=== PATIENT | male | born 1960 | race Caucasian/White ===

== ENCOUNTER 2020-11-10 07:24 | Emergency (ER) | payer OTHER ==
--- NOTE | 2020-11-10 08:38 | EDM.PDOC ---
ED HPI GENERAL MEDICAL PROBLEM - General Chief Complaint: Upper Extremity Injury/Pain Stated Complaint: SHOULDER PAIN Time Seen by Provider: 11/10/20 07:47 Source of Information: Reports: Patient History Limitations: Reports: No Limitations - History of Present Illness INITIAL COMMENTS - FREE TEXT/NARRATIVE: The patient presents with bilateral shoulder pain. He says this has been going on for over a week. He said he fell about 10 days ago backward and caught himself. He did not hurt right away but a few days later this started. He wakes up with the pain in the morning and it takes hours and enough tylenol and motrin to get his shoulders loose enough to move. He had a left knee replacement in May and a few weeks ago he had some pain behind the knee and that is gone now. He has no other joint pain. He says his hips hurt for a couple days but they are okay now. He has no fever, chills, cough, chest, pain, shortness of breath, abdominal pain, nausea or vomiting. Onset: Gradual Duration: Week(s): Location: Reports: Upper Extremity, Left (shoulder), Upper Extremity, Right (shoulder) Quality: Reports: Sharp Severity: Severe Improves with: Reports: Immobilization Worsens with: Reports: Movement Context: Reports: Trauma (fell about 10 days ago) Associated Symptoms: Reports: No Other Symptoms Bilateral Shoulder Pain Score (Numeric/FACES): 4 - Related Data Allergies Allergy/AdvReac Type Severity Reaction Status Date / Time No Known Allergies Allergy Verified 11/10/20 07:43 Home Meds: Home Meds predniSONE [Prednisone] 10 mg PO DAILY #120 tablet 11/10/20 [Rx] Past Medical History - Past Surgical History Musculoskeletal Surgical History: Reports: Knee Replacement Social & Family History - Tobacco Use Tobacco Use Status *Q: Former Tobacco User Used Tobacco, but Quit: Yes Month/Year Tobacco Last Used: 40 yrs ago - Recreational Drug Use Recreational Drug Use: No Review of Systems - Review of Systems Review Of Systems: See Below Constitutional: Reports: No Symptoms Eyes: Reports: No Symptoms Ears: Reports: No Symptoms Nose: Reports: No Symptoms Mouth/Throat: Reports: No Symptoms Respiratory: Reports: No Symptoms Cardiovascular: Reports: No Symptoms GI/Abdominal: Reports: No Symptoms Genitourinary: Reports: No Symptoms Musculoskeletal: Reports: Shoulder Pain (bilateral) ED EXAM, GENERAL - Physical Exam Exam: See Below Exam Limited By: No Limitations General Appearance: Alert, No Apparent Distress Ears: Normal External Exam Nose: Normal Inspection Head: Atraumatic, Normocephalic Neck: Normal Inspection Respiratory/Chest: No Respiratory Distress, Lungs Clear, Normal Breath Sounds Cardiovascular: Regular Rate, Rhythm, No Edema, No Murmur GI/Abdominal: Soft, Non-Tender, No Organomegaly, No Mass Back Exam: Normal Inspection Extremities: Other (No pain upon palpation to his shoulders but range of motion limited due to pain. Good sensation and pulses distally. Equal strenght noted.) Course - Vital Signs Last Recorded V/S: Last Vital Signs Temp 97.8 F 11/10/20 07:40 Pulse 67 11/10/20 07:40 Resp 18 11/10/20 07:40 BP 130/87 11/10/20 07:40 Pulse Ox 99 11/10/20 07:40 - Orders/Labs/Meds Orders: Active Orders 24 hr Category Date Time Status Cardiac Monitoring [RC] . DIRECTED Care 11/10/20 07:54 Active Shoulder Comp Bi [CR] Stat Exams 11/10/20 07:55 Taken Labs: Laboratory Tests 11/10/20 11/10/20 11/10/20 Range/Units 08:10 08:10 08:10 WBC 8.84 (4.23-9.07) K/mm3 RBC 4.62 L (4.63-6.08) M/mm3 Hgb 14.3 (13.7-17.5) gm/dl Hct 43.6 (40.1-51.0) % MCV 94.4 H (79.0-92.2) fl MCH 31.0 (25.7-32.2) pg MCHC 32.8 (32.2-35.5) g/dl RDW Std Deviation 41.8 (35.1-43.9) fL Plt Count 452 H (163-337) K/mm3 MPV 8.3 L (9.4-12.3) fl Neut % (Auto) 67.9 (34.0-67.9) % Lymph % (Auto) 21.0 L (21.8-53.1) % O'Brien % (Auto) 9.2 (5.3-12.2) % Eos % (Auto) 1.5 (0.8-7.0) Baso % (Auto) 0.2 (0.1-1.2) % Neut # (Auto) 6.00 H (1.78-5.38) K/mm3 Lymph # (Auto) 1.86 (1.32-3.57) K/mm3 O'Brien # (Auto) 0.81 (0.30-0.82) K/mm3 Eos # (Auto) 0.13 (0.04-0.54) K/mm3 Baso # (Auto) 0.02 (0.01-0.08) K/mm3 ESR 33 H (0-15) mm/hr Sodium 141 (136-145) mEq/L Potassium 4.9 (3.5-5.1) mEq/L Chloride 104 (98-107) mEq/L Carbon Dioxide 28 (21-32) mEq/L Anion Gap 13.9 (5-15) BUN 19 H (7-18) mg/dL Creatinine 1.0 (0.7-1.3) mg/dL Est Cr Clr Drug Dosing TNP Estimated GFR (MDRD) > 60 (>60) mL/min BUN/Creatinine Ratio 19.0 H (14-18) Glucose 113 H (70-99) mg/dL Calcium 9.3 (8.5-10.1) mg/dL Total Bilirubin 0.7 (0.2-1.0) mg/dL AST 19 (15-37) U/L ALT 28 (16-63) U/L Alkaline Phosphatase 92 (46-116) U/L C-Reactive Protein 5.1 H* (<1.0) mg/dL Total Protein 8.0 (6.4-8.2) g/dl Albumin 3.9 (3.4-5.0) g/dl Globulin 4.1 gm/dL Albumin/Globulin Ratio 1.0 (1-2) - Re-Assessments/Exams Free Text/Narrative Re-Assessment/Exam: 11/10/20 08:40 I ordered x-rays of both shoulders and labs. 11/10/20 09:33 His x-rays look good. His CBC and CMP look good. His ESR is elevated at 33. His CRP is elevated at 5.4. It appears he has polymyalgia rheumatica. He is from [place] and will not be back home until January. I will start him out at 20mg of prednisone for about 2 weeks and then have him go down to 10mg. I will try to get him enough prednisone until he gets home. Departure - Departure Time of Disposition: 09:40 Disposition: Home, Self-Care 01 Condition: Good Clinical Impression: Polymyalgia rheumatica - Discharge Information *PRESCRIPTION DRUG MONITORING PROGRAM REVIEWED*: Not Applicable *COPY OF PRESCRIPTION DRUG MONITORING REPORT IN PATIENT CM: Not Applicable Prescriptions: predniSONE [Prednisone] 10 mg PO DAILY #120 tablet Referrals: PCP,Not In Area [Primary Care Provider] - Forms: ED Department Discharge Additional Instructions: Take the prednisone 20mg or 2 pills daily for 2 weeks and then 1 pill or 10mg daily after that. Follow up with your doctor when you get home. Do not stop the prednisone abruptly. Your doctor will have to wean you off of it. You should notice a difference if a few days. Please return if you are worse. Sepsis Event Note (ED) - Evaluation Sepsis Screening Result: No Definite Risk - Focused Exam Vital Signs: Vital Signs Temp Pulse Resp BP Pulse Ox 11/10/20 07:40 97.8 F 67 18 130/87 99 - My Orders Last 24 Hours: My Active Orders 11/10/20 07:54 Cardiac Monitoring [RC] . DIRECTED 11/10/20 07:55 Shoulder Comp Bi [CR] Stat - Assessment/Plan Last 24 Hours: My Active Orders 11/10/20 07:54 Cardiac Monitoring [RC] . DIRECTED 11/10/20 07:55 Shoulder Comp Bi [CR] Stat
--- NOTE | 2020-11-10 10:22 | CR ---
Bilateral shoulders: 3 views of both shoulders were obtained. Comparison: No prior study is available of either shoulder. Right shoulder: Small detached bony density is seen within the distal clavicle compatible with old fracture. There are also multiple well-corticated calcifications seen on the distal clavicle compatible with old injury. Joint space narrowing is seen within the acromioclavicular joint compatible with degenerative change. Well-corticated degenerative calcification is noted superiorly within the acromioclavicular joint. There is slight spurring also noted within the glenoid rim. No acute fracture or subluxation is seen. Impression: 1. Old injury as well as degenerative change as noted above. 2. Nothing acute is seen. Left shoulder: Joint space narrowing is seen within the acromioclavicular joint. Slight superior spurring is noted within the acromioclavicular joint involving the distal clavicle. Minimal spurring is noted off the glenoid rim. Nodule is noted within the left upper chest most likely representing a granuloma. Impression: 1. Nodule within the left upper chest which appears fairly dense which I believe is a granuloma. 2. Mild degenerative change as noted above. 3. Nothing acute is seen. Diagnostic code #2
== END 2020-11-10 09:50 | disposition home or self-care (01) ==
LOC: JD.ED 07:24
DX: M35.3 Polymyalgia rheumatica (principal); R79.82 Elevated C-reactive protein (CRP); Z87.891 Personal history of nicotine dependence; Z96.652 Presence of left artificial knee joint
CPT/HCPCS: 36415; 730302650; 73030-50; 80053; 85025; 85652; 86140; 99283; 99283-25